=== PATIENT | female | born 1985 | race Two or more races ===

== ENCOUNTER 2025-10-23 09:27 | Emergency (ER) | payer MEDICAID, OTHER ==
[~2025-10-23] VITALS: Ht 172.7 cm; Wt 78.8 kg
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
[2025-10-23 10:18] VITALS: BP 149/81; PULSE 78; RESP 18; TEMP 98.6; O2SAT 99
[2025-10-23] MEDS ORDERED: IBUP-1456 PO (10:20)
[2025-10-23] MEDS ORDERED: METH-1182 PO (10:20)
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
== END 2025-10-23 10:39 | disposition home or self-care (01) ==
LOC: ER 09:27
DX: S39.012A Strain of muscle, fascia and tendon of lower back, initial encounter (principal); S60.222A Contusion of left hand, initial encounter; M51.379 Other intervertebral disc degeneration, lumbosacral region without mention of lumbar back pain or lower extremity pain; V89.2XXA Person injured in unspecified motor-vehicle accident, traffic, initial encounter; Y93.89 Activity, other specified; Y92.410 Unspecified street and highway as the place of occurrence of the external cause; Y99.8 Other external cause status
CPT/HCPCS: 72100; 73130